=== PATIENT | female | born 1985 | race Caucasian/White ===

== ENCOUNTER → 2016-08-05 | Outpatient (CLI) | payer BC ==
--- NOTE | 2016-08-05 17:47 | WOMENS IMAGING REPORT ---
EXAM DESCRIPTION: BILAT DIAGNOSTIC MAMMO W/CAD; U/S BREAST UNILAT LIMITED COMPLETED DATE/TIME: 08/05/2016 10:29 am; 08/05/2016 11:19 am REASON FOR STUDY: N63 LUMP; BREAST LUMP; LUMP N63 UNSPECIFIED LUMP IN BREAST COMPARISON: None. TECHNIQUE: Standard craniocaudal and mediolateral oblique views of each breast recorded using digita l acquisition. Bilateral craniocaudad and MLO cone compression images, bilateral 90 mediolateral mammograms. Bilateral breast ultrasound was performed. LIMITATIONS: None. FINDINGS: RIGHT BREAST MASSES: Small 5 mm nodule deep central 12 o'clock position, right breast laterally about the 9 o'cloc k position. These were subsequently demonstrated to represent benign breast parenchymal cysts at [facility] rasound today. CALCIFICATIONS: No new or suspicious calcifications. ARCHITECTURAL DISTORTION: None. DEVELOPING DENSITY: None. ASYMMETRY: None noted. OTHER: No other significant findings. LEFT BREAST MASSES: No suspicious masses. CALCIFICATIONS: No new or suspicious calcifications. ARCHITECTURAL DISTORTION: None. DEVELOPING DENSITY: None. ASYMMETRY: None noted. OTHER: No other significant finding. Read with the assistance of CAD: .[facility] - R2 Cenova Version 1.3 .[facility] - R2 Cenova Version 1.3 .[facility] - R2 Cenova Version 2.4 .[facility] - R2 Cenova Version 2.4 .[facility] - R2 [employer] Officer Version 9.2 Bilateral breast ultrasound: Patient had a questionable palpable abnormality in the left breast upper outer quadrant. Ultrasound of this area demonstrates no discrete cystic or solid lesions. No focal findings. Ultrasound was performed to evaluate mammographic nodules seen today. Benign breast parenchymal cyst s are present, 7 mm diameter at the deep 12 o'clock position, 3 mm diameter at the 12 o'clock positio n, 5 mm diameter at the 9 o'clock position. BREAST DENSITY: b. There are scattered areas of fibroglandular density. BIRAD: 2 Benign findings. RECOMMENDATION: RECOMMENDED FOLLOW UP: Please continue bilateral yearly screening mammography based on the patient's lifetime risk assessment for breast cancer, Karla model SPECIFIC INTERVENTION/IMAGING/CONSULTATION RECOMMENDED:No additional intervention/ imaging/consultati on needed at this time. COMMUNICATION:Patient notified by letter COMMENT: PATIENT NOTIFIED BY LETTER. The [employer] (ACR) has developed recommendations for screening MRI of the breast s in certain patient populations, to be used in conjunction with mammography. Breast MRI surveillanc e may be appropriate for women with more than 20% lifetime risk of developing breast cancer as deter mined by genetic testing, significant family history of the disease, or history of mantle radiation f or Hodgkins Disease. ACR Practice Guidelines 2008. TECHNICAL DOCUMENTATION: FINDING NUMBER: (1) ASSESSMENT: (1) JOB ID: [id number] [employer]- All Rights Reserved
--- NOTE | 2016-08-05 17:47 | WOMENS IMAGING REPORT ---
EXAM DESCRIPTION: BILAT DIAGNOSTIC MAMMO W/CAD; U/S BREAST UNILAT LIMITED COMPLETED DATE/TIME: 08/05/2016 10:29 am; 08/05/2016 11:19 am REASON FOR STUDY: N63 LUMP; BREAST LUMP; LUMP N63 UNSPECIFIED LUMP IN BREAST COMPARISON: None. TECHNIQUE: Standard craniocaudal and mediolateral oblique views of each breast recorded using digita l acquisition. Bilateral craniocaudad and MLO cone compression images, bilateral 90 mediolateral mammograms. Bilateral breast ultrasound was performed. LIMITATIONS: None. FINDINGS: RIGHT BREAST MASSES: Small 5 mm nodule deep central 12 o'clock position, right breast laterally about the 9 o'cloc k position. These were subsequently demonstrated to represent benign breast parenchymal cysts at [facility] rasound today. CALCIFICATIONS: No new or suspicious calcifications. ARCHITECTURAL DISTORTION: None. DEVELOPING DENSITY: None. ASYMMETRY: None noted. OTHER: No other significant findings. LEFT BREAST MASSES: No suspicious masses. CALCIFICATIONS: No new or suspicious calcifications. ARCHITECTURAL DISTORTION: None. DEVELOPING DENSITY: None. ASYMMETRY: None noted. OTHER: No other significant finding. Read with the assistance of CAD: .[facility] - R2 Cenova Version 1.3 .[facility] - R2 Cenova Version 1.3 .[facility] - R2 Cenova Version 2.4 .[facility] - R2 Cenova Version 2.4 .[facility] - R2 Kiln Tender Version 9.2 Bilateral breast ultrasound: Patient had a questionable palpable abnormality in the left breast upper outer quadrant. Ultrasound of this area demonstrates no discrete cystic or solid lesions. No focal findings. Ultrasound was performed to evaluate mammographic nodules seen today. Benign breast parenchymal cyst s are present, 7 mm diameter at the deep 12 o'clock position, 3 mm diameter at the 12 o'clock positio n, 5 mm diameter at the 9 o'clock position. BREAST DENSITY: b. There are scattered areas of fibroglandular density. BIRAD: 2 Benign findings. RECOMMENDATION: RECOMMENDED FOLLOW UP: Please continue bilateral yearly screening mammography based on the patient's lifetime risk assessment for breast cancer, Karla model SPECIFIC INTERVENTION/IMAGING/CONSULTATION RECOMMENDED:No additional intervention/ imaging/consultati on needed at this time. COMMUNICATION:Patient notified by letter COMMENT: PATIENT NOTIFIED BY LETTER. The [employer] (ACR) has developed recommendations for screening MRI of the breast s in certain patient populations, to be used in conjunction with mammography. Breast MRI surveillanc e may be appropriate for women with more than 20% lifetime risk of developing breast cancer as deter mined by genetic testing, significant family history of the disease, or history of mantle radiation f or Hodgkins Disease. ACR Practice Guidelines 2008. TECHNICAL DOCUMENTATION: FINDING NUMBER: (1) ASSESSMENT: (1) JOB ID: [id number] [email or web address]- All Rights Reserved
--- NOTE | 2016-08-05 17:47 | WOMENS IMAGING REPORT ---
EXAM DESCRIPTION: BILAT DIAGNOSTIC MAMMO W/CAD; U/S BREAST UNILAT LIMITED COMPLETED DATE/TIME: 08/05/2016 10:29 am; 08/05/2016 11:19 am REASON FOR STUDY: N63 LUMP; BREAST LUMP; LUMP N63 UNSPECIFIED LUMP IN BREAST COMPARISON: None. TECHNIQUE: Standard craniocaudal and mediolateral oblique views of each breast recorded using digita l acquisition. Bilateral craniocaudad and MLO cone compression images, bilateral 90 mediolateral mammograms. Bilateral breast ultrasound was performed. LIMITATIONS: None. FINDINGS: RIGHT BREAST MASSES: Small 5 mm nodule deep central 12 o'clock position, right breast laterally about the 9 o'cloc k position. These were subsequently demonstrated to represent benign breast parenchymal cysts at [facility] rasound today. CALCIFICATIONS: No new or suspicious calcifications. ARCHITECTURAL DISTORTION: None. DEVELOPING DENSITY: None. ASYMMETRY: None noted. OTHER: No other significant findings. LEFT BREAST MASSES: No suspicious masses. CALCIFICATIONS: No new or suspicious calcifications. ARCHITECTURAL DISTORTION: None. DEVELOPING DENSITY: None. ASYMMETRY: None noted. OTHER: No other significant finding. Read with the assistance of CAD: .[facility] - R2 Cenova Version 1.3 .[facility] - R2 Cenova Version 1.3 .[facility] - R2 Cenova Version 2.4 .[facility] - R2 Cenova Version 2.4 .[facility] - R2 [employer] Version 9.2 Bilateral breast ultrasound: Patient had a questionable palpable abnormality in the left breast upper outer quadrant. Ultrasound of this area demonstrates no discrete cystic or solid lesions. No focal findings. Ultrasound was performed to evaluate mammographic nodules seen today. Benign breast parenchymal cyst s are present, 7 mm diameter at the deep 12 o'clock position, 3 mm diameter at the 12 o'clock positio n, 5 mm diameter at the 9 o'clock position. BREAST DENSITY: b. There are scattered areas of fibroglandular density. BIRAD: 2 Benign findings. RECOMMENDATION: RECOMMENDED FOLLOW UP: Please continue bilateral yearly screening mammography based on the patient's lifetime risk assessment for breast cancer, Karla model SPECIFIC INTERVENTION/IMAGING/CONSULTATION RECOMMENDED:No additional intervention/ imaging/consultati on needed at this time. COMMUNICATION:Patient notified by letter COMMENT: PATIENT NOTIFIED BY LETTER. The [employer] [employer] (ACR) has developed recommendations for screening MRI of the breast s in certain patient populations, to be used in conjunction with mammography. Breast MRI surveillanc e may be appropriate for women with more than 20% lifetime risk of developing breast cancer as deter mined by genetic testing, significant family history of the disease, or history of mantle radiation f or Hodgkins Disease. ACR Practice Guidelines 2008. TECHNICAL DOCUMENTATION: FINDING NUMBER: (1) ASSESSMENT: (1) JOB ID: [id number] [email or web address]- All Rights Reserved
== END ==
LOC: WI 10:07
DX: N63 Unspecified lump in breast (principal)
CPT/HCPCS: 76642; G0204; 77066

== ENCOUNTER 2020-01-16 16:29 | Emergency (ER) | payer BC, OTHER ==
[2020-01-16] MEDS ORDERED: ONDANSETRON HCL INJ/PF 4 MG/2 ML SDV IV ONE (17:36)
[2020-01-16] MEDS ORDERED: NORMAL SALINE 1000 ML 1,000 ML IV ONE ×2 (17:36→21:13)
[2020-01-16] MEDS ORDERED: KETOROLAC TROMETHAMINE INJ/PF 30 MG/1 ML SDV IV ONE (17:36)
--- NOTE | 2020-01-16 17:40 | ER Document Report ---
ED General - General Mode of Arrival: Ambulatory Information source: Patient TRAVEL OUTSIDE OF THE [place] IN LAST 30 DAYS: No - HPI Onset: Other - 5 days Onset/Duration: Worse Quality of pain: Achy Pain Level: 3 Associated symptoms: Nonproductive cough, Fever, Nausea. denies: Productive cough, Diarrhea, Headache, Vomiting, Sore throat Exacerbated by: Denies Relieved by: Denies Similar symptoms previously: No Recently seen / treated by doctor: No <JUAN GOMES - Last Filed: 01/17/20 00:46> <ERIC BOWMAN - Last Filed: 01/17/20 06:21> - General Chief Complaint: right flank Stated Complaint: FLANK PAIN/FEVER/SOB Time Seen by Provider: 01/16/20 16:50 Primary Care Provider: [facility] [Provider Group] - Follow up tomorrow Notes: Patient presents complaining of right side pain for the past 5 days. Patient states she did have some urinary frequency. Patient reports nausea. Patient states she is had a fever for the past 3 days that is been as high as 104. Patient reports dry cough for the past 3 days as well. (JUAN GOMES) - Related Data Allergies/Adverse Reactions: ceftriaxone sodium [From Rocephin IM Convenience] Allergy (Verified 01/16/20 16:45) doxycycline Allergy (Verified 01/16/20 16:45) lidocaine HCl [From Rocephin IM Convenience] Allergy (Verified 01/16/20 16:45) Past Medical History - General Information source: Patient - Social History Smoking Status: Current Every Day Smoker Frequency of alcohol use: None Drug Abuse: None Occupation: Retail Family History: Reviewed & Not Pertinent Patient has homicidal ideation: No Pulmonary Medical History: Reports: Hx Asthma Neurological Medical History: Reports: Hx Migraine Surgical Hx: Negative - Immunizations Hx Diphtheria, Pertussis, Tetanus Vaccination: No - unknown <JUAN GOMES - Last Filed: 01/17/20 00:46> Review of Systems - Review of Systems Constitutional: Fever EENT: No symptoms reported Cardiovascular: No symptoms reported. denies: Chest pain Respiratory: Cough. denies: Short of breath Gastrointestinal: Abdominal pain, Nausea. denies: Diarrhea, Vomiting Genitourinary: Frequency, Flank pain. denies: Dysuria Female Genitourinary: No symptoms reported Musculoskeletal: Back pain Skin: No symptoms reported Hematologic/Lymphatic: No symptoms reported Neurological/Psychological: No symptoms reported <JUAN GOMES - Last Filed: 01/17/20 00:46> Physical Exam - General General appearance: Appears well, Alert In distress: None - HEENT Head: Normocephalic, Atraumatic Eyes: Normal Conjunctiva: Normal Nasal: Normal Mouth/Lips: Normal Mucous membranes: Normal Neck: Normal, Supple. No: Lymphadenopathy - Respiratory Respiratory status: No respiratory distress Chest status: Nontender Breath sounds: Nonproductive cough Chest palpation: Normal - Cardiovascular Rhythm: Regular Heart sounds: S1 appreciated, S2 appreciated Murmur: No - Abdominal Inspection: Normal Distension: No distension Bowel sounds: Normal Tenderness: Tender - Right middle abdominal tenderness. No: Guarding Organomegaly: No organomegaly - Back Back: CVA tenderness - Right. No: Vertebra tenderness - Extremities General upper extremity: Normal inspection, Normal strength General lower extremity: Normal inspection, Normal strength - Neurological Neuro grossly intact: Yes Cognition: Normal [place] Coma Scale Eye Opening: Spontaneous [place] Coma Scale Verbal: Oriented [place] Coma Scale Motor: Obeys Commands [place]h Coma Scale Total: 15 - Psychological Associated symptoms: Normal affect, Normal mood - Skin Skin Temperature: Warm Skin Moisture: Dry Skin Color: Normal <JUAN GOMES - Last Filed: 01/17/20 00:46> - Vital signs Vitals: Temp Pulse BP Pulse Ox 98.8 F 97 129/82 H 98 01/16/20 16:37 01/16/20 16:37 01/16/20 16:37 01/16/20 16:37 Course - Laboratory Result Diagrams: 01/16/20 17:15 01/16/20 17:15 - Diagnostic Test Radiology reviewed: Reports reviewed <ELISEOHUMERASAMIR - Last Filed: 01/17/20 00:46> - Laboratory Result Diagrams: 01/16/20 17:15 01/16/20 17:15 <ERIC BOWMAN - Last Filed: 01/17/20 06:21> - Re-evaluation Re-evalutation: 01/16/20 20:16 Patient with mild leukocytosis although afebrile. Patient does have UTI wo rrisome for pyelonephritis at this time. Patient nontoxic in appearance. No evidence for obstructive uropathy on CT scan. 01/16/20 20:[address] Moore who agrees with plan of care with administering a gram of ertapenem and discharging patient home with a prescription for Bactrim. 01/16/20 21:15 Patient febrile at this time. Will treat fever symptoms and give additional IV fluids and reevaluate. 01/17/20 00:46 Report and handoff given to Eric Bowman, LUZ. Patient updated regarding plan of care at this time. (JUAN GOMES) Repeat lactic was normal, patient feels improved, vital signs stable. Discharged initiated by previous provider printed for nursing staff. (ERIC BOWMAN) - Vital Signs Vital signs: Temp Pulse Resp BP Pulse Ox 99.2 F 103 H 15 114/62 97 01/17/20 04:16 01/16/20 21:20 01/17/20 04:14 01/17/20 04:14 01/17/20 04:14 - Laboratory Laboratory results interpreted by me: 01/16/20 01/16/20 01/16/20 17:15 17:15 17:15 WBC 12.7 H Hgb 15.7 H Absolute Neuts (auto) 9.5 H Sodium 136.9 L Glucose 120 H Lactic Acid Urine Protein 30 H Urine Blood MODERATE H Ur Leukocyte Esterase MODERATE H 01/16/20 01/17/20 22:26 02:05 WBC Hgb Absolute Neuts (auto) Sodium Glucose Lactic Acid 0.6 L 0.6 L Urine Protein Urine Blood Ur Leukocyte Esterase Labs- All tests 24 hr 01/16/20 01/16/20 01/16/20 17:15 17:15 17:15 WBC 12.7 H RBC 4.96 Hgb 15.7 H Hct 46.2 MCV 93 MCH 31.7 MCHC 34.0 RDW 13.1 Plt Count 203 Lymph % (Auto) 15.4 [place] % (Auto) 8.6 Eos % (Auto) 0.5 Baso % (Auto) 0.3 Absolute Neuts (auto) 9.5 H Absolute Lymphs (auto) 2.0 Absolute Monos (auto) 1.1 Absolute Eos (auto) 0.1 Absolute Basos (auto) 0.0 Seg Neutrophils % 75.2 Sodium 136.9 L Potassium 3.9 Chloride 101 Carbon Dioxide 29 Anion Gap 7 BUN 14 Creatinine 0.92 Est GFR ( Amer) > 60 Est GFR (MDRD) Non-Af > 60 Glucose 120 H Calcium 9.0 Total Bilirubin 0.5 Direct Bilirubin 0.1 Neonat Total Bilirubin Not Reportable Neonat Direct Bilirubin Not Reportable Neonat Indirect Bili Not Reportable AST 23 ALT 22 Alkaline Phosphatase 44 Total Protein 7.2 Albumin 4.2 Lipase 43.9 Serum HCG, Qual NEGATIVE Urine Color Urine Appearance Urine pH Ur Specific [place] Urine Protein Urine Glucose (UA) Urine Ketones Urine Blood Urine Nitrite Urine Bilirubin Urine Urobilinogen Ur Leukocyte Esterase Urine WBC (Auto) Urine RBC (Auto) Urine Bacteria (Auto) Squamous Epi Cells Auto Urine Mucus (Auto) Urine Ascorbic Acid 01/16/20 17:15 WBC RBC Hgb Hct MCV MCH MCHC RDW Plt Count Lymph % (Auto) Davie % (Auto) Eos % (Auto) Baso % (Auto) Absolute Neuts (auto) Absolute Lymphs (auto) Absolute Monos (auto) Absolute Eos (auto) Absolute Basos (auto) Seg Neutrophils % Sodium Potassium Chloride Carbon Dioxide Anion Gap BUN Creatinine Est GFR ( Amer) Est GFR (MDRD) Non-Af Glucose Calcium Total Bilirubin Direct Bilirubin Neonat Total Bilirubin Neonat Direct Bilirubin Neonat Indirect Bili AST ALT Alkaline Phosphatase Total Protein Albumin Lipase Serum HCG, Qual Urine Color YELLOW Urine Appearance SLIGHTLY-CLOUDY Urine pH 6.0 Ur Specific [place] 1.017 Urine Protein 30 H Urine Glucose (UA) NEGATIVE Urine Ketones NEGATIVE Urine Blood MODERATE H Urine Nitrite NEGATIVE Urine Bilirubin NEGATIVE Urine Urobilinogen NEGATIVE Ur Leukocyte Esterase MODERATE H Urine WBC (Auto) 170 Urine RBC (Auto) 14 Urine Bacteria (Auto) 3+ Squamous Epi Cells Auto 1 Urine Mucus (Auto) OCC Urine Ascorbic Acid NEGATIVE (JUAN GOMES) Discharge <JUAN GOMES - Last Filed: 01/17/20 00:46> <ERIC BOWMAN - Last Filed: 01/17/20 06:21> - Discharge Clinical Impression: Pyelonephritis, Flank pain, Encounter for screening laboratory testing for COVID-19 virus Condition: Stable Disposition: HOME, SELF-CARE Instructions: COVID-19 Guidance for Persons Under Investigation, IV Antibiotics ([facility]), Pyelonephritis ([facility]), Trimethoprim-Sulfa ([facility]) Additional Instructions: Return immediately for any new or worsening symptoms Followup with your primary care provider, call tomorrow to make a followup appointment Urine culture is pending, we will call if you need any different treatment Prescriptions: Sulfamethoxazole/Trimethoprim [Bactrim Ds Tablet] 1 each PO BID #20 tablet Hydrocodone/Acetaminophen [[place] 5-325 mg Tablet] 1 tab PO Q6 PRN #6 tablet PRN Reason: Ondansetron [Zofran Odt 4 mg Tablet] 1 tab PO Q6H #15 tab.rapdis Forms: Return to Work Referrals: [facility] [Provider Group] - Follow up tomorrow
[2020-01-16 18:04] LABS: ABSOLUTE EOSINOPHILS # (AUTO) 0.1 10^3/uL (0.0-0.6); ABSOLUTE MONOCYTES (AUTO) 1.1 10^3/uL (0.1-1.4); ABSOLUTE NEUT (AUTO) 9.5 10^3/uL (1.7-8.2); BASOPHILS % (AUTO) 0.3 % (0-2); EOSINOPHILS % (AUTO) 0.5 % (0-6); HEMATOCRIT 46.2 % (36.0-47.0); HEMOGLOBIN 15.7 g/dL (12.0-15.5); LYMPHOCYTES % (AUTO) 15.4 % (13-45); MEAN CORPUSCULAR HEMOGLOBIN 31.7 pg (27.0-33.4); MEAN CORPUSCULAR VOLUME 93 fl (80-97); MONOCYTES % (AUTO) 8.6 % (3-13); PLATELET COUNT 203 10^3/uL (150-450); RED BLOOD COUNT 4.96 10^6/uL (3.72-5.28); RED CELL DISTRIBUTION WIDTH 13.1 % (11.5-14.0); SEGMENTED NEUTROPHILS % (AUTO) 75.2 % (42-78); TOTAL CELLS COUNTED % (AUTO) 100 %; WHITE BLOOD COUNT 12.7 10^3/uL (4.0-10.5)
[2020-01-16 18:15] LABS: ALBUMIN 4.2 g/dL (3.5-5.0); ALKALINE PHOSPHATASE 44 U/L (38-126); ANION GAP 7 (5-19); ASPARTATE AMINO TRANSFERASE 23 U/L (14-36); BILIRUBIN,DIRECT 0.1 mg/dL (0.0-0.4); BILIRUBIN,TOTAL 0.5 mg/dL (0.2-1.3); BLOOD UREA NITROGEN 14 mg/dL (7-20); CARBON DIOXIDE 29 mmol/L (22-30); CHLORIDE 101 mmol/L (98-107); GLUCOSE 120 mg/dL (75-110); POTASSIUM 3.9 mmol/L (3.6-5.0); TOTAL PROTEIN 7.2 g/dL (6.3-8.2)
--- NOTE | 2020-01-16 18:15 | RADIOLOGY REPORT (SQ) ---
EXAM DESCRIPTION: CHEST SINGLE VIEW IMAGES COMPLETED DATE/TIME: 01/16/2020 5:55 pm REASON FOR STUDY: cough COMPARISON: 07/28/2010 EXAM PARAMETERS: NUMBER OF VIEWS: One view. TECHNIQUE: Single frontal radiographic view of the chest acquired. RADIATION DOSE: NA LIMITATIONS: None. FINDINGS: LUNGS AND PLEURA: No opacities, masses or pneumothorax. No pleural effusion. MEDIASTINUM AND HILAR STRUCTURES: No masses. Contour normal. HEART AND VASCULAR STRUCTURES: Heart normal in size. Normal vasculature. BONES: No acute findings. HARDWARE: None in the chest. OTHER: No other significant finding. IMPRESSION: 1. No significant interval changes since the prior study dated 07/28/2010. No acute fin dings. TECHNICAL DOCUMENTATION: JOB ID: [id number] 2010 [employer]- All Rights Reserved Reading location - IP/workstation name: [email or web address]
[2020-01-16 18:23] LABS: APPEARANCE,URINE SLIGHTLY-CLOUDY; BILIRUBIN,URINE NEGATIVE (NEGATIVE); COLOR,URINE YELLOW; GLUCOSE, URINE NEGATIVE (NEGATIVE); KETONES,URINE NEGATIVE (NEGATIVE); LEUKOCYTE ESTERASE,URINE MODERATE (NEGATIVE); NITRITE,URINE NEGATIVE (NEGATIVE); PROTEIN,URINE 30 mg/dL (NEGATIVE); URINE SPECIFIC GRAVITY 1.017; UROBILINOGEN,URINE NEGATIVE mg/dL (<2.0)
[2020-01-16] MEDS ORDERED: MORPHINE SULFATE 10 MG/ML INJ IV ONE (18:29)
[2020-01-16] MEDS ORDERED: SULFAMETHOXAZOLE/TRIMETHOPRIM 800-160 MG TABLET PO ONE (18:30)
--- NOTE | 2020-01-16 19:35 | RADIOLOGY REPORT (SQ) ---
EXAM DESCRIPTION: CT ABD/PELVIS NO ORAL OR IV IMAGES COMPLETED DATE/TIME: 01/16/2020 7:21 pm REASON FOR STUDY: r flank pain, uti COMPARISON: None. TECHNIQUE: CT scan of the abdomen and pelvis performed without intravenous or oral contrast. Images reviewed with lung, soft tissue, and bone windows. Reconstructed coronal and sagittal MPR images revi ewed. All images stored on PACS. All CT scanners at this facility use dose modulation, iterative reconstruction, and/or weight based d osing when appropriate to reduce radiation dose to as low as reasonably achievable (ALARA). [facility]: Dose Right [facility]: CareDose [facility]: Dose Right [facility]: Teradose 4D [facility]: Smart Feedjit RADIATION DOSE: CT Rad equipment meets quality standard of care and radiation dose reduction techniq ues were employed. CTDIvol: 11.8 mGy. DLP: 676 mGy-cm.mGy. LIMITATIONS: None. FINDINGS: LOWER CHEST: No significant findings. No nodules or infiltrates. NON-CONTRASTED LIVER, SPLEEN, ADRENALS: Evaluation limited by lack of IV contrast. No identified sign ificant masses. PANCREAS: No masses. No peripancreatic inflammatory changes. GALLBLADDER: No identified stones by CT criteria. No inflammatory changes to suggest cholecystitis. RIGHT KIDNEY AND URETER: No suspicious masses. Assessment limited by lack of IV contrast. No signif icant calcifications. No hydronephrosis or hydroureter. LEFT KIDNEY AND URETER: No suspicious masses. Assessment limited by lack of IV contrast. No signifi cant calcifications. No hydronephrosis or hydroureter. AORTA AND RETROPERITONEUM: No aneurysm. No retroperitoneal masses or adenopathy. BOWEL AND PERITONEAL CAVITY: No obvious masses or inflammatory changes. No free fluid. APPENDIX: Not identified. PELVIS, BLADDER, AND ABDOMINAL WALL:No abnormal masses. No free fluid. Bladder normal. BONES: No significant findings. OTHER: No other significant finding. IMPRESSION: No urinary calculi are seen. The appendix is not identified, but no pericecal inflammat ion is seen. COMMENT: Quality ID # [id number]: Final reports with documentation of one or more dose reduction techniques (e.g., Automated exposure control, adjustment of the mA and/or kV according to patient size, use of iterative reconstruction technique) TECHNICAL DOCUMENTATION: JOB ID: [id number] 2010 [employer]- All Rights Reserved Reading location - IP/workstation name: [email or web address]
[2020-01-16] MEDS ORDERED: ERTAPENEM SODIUM INJ 1 GM VIAL IV ONE (20:25)
[2020-01-16] MEDS ORDERED: ACETAMINOPHEN 325 MG TABLET PO ONE (21:12)
[2020-01-16] MEDS ORDERED: RINGERS SOLUTION,LACTATED 1,000 ML IV ONE (22:14)
[2020-01-16 22:40] LABS: INTERNATIONAL RATION (INR) 1.07; PROTHROMBIN TIME 13.9 SEC (11.4-15.4)
[2020-01-16 23:13] LABS: VENOUS BLOOD BASE EXCESS -2.6 mmol/L; VENOUS BLOOD HCO3 21.8 mmol/L (20-32); VENOUS BLOOD PCO2 36.7 mmHg (35-63); VENOUS BLOOD PH 7.39 (7.30-7.42)
[2020-01-16] MEDS ORDERED: IBUPROFEN 800 MG TABLET PO ONE (23:40)
[2020-01-17 04:31] VITALS: BP 114/62
--- NOTE | 2020-01-17 13:18 | EKG REPORT ---
SEVERITY:- BORDERLINE ECG - SINUS RHYTHM PROBABLE LEFT ATRIAL ABNORMALITY BORDERLINE RIGHT AXIS DEVIATION : Confirmed by: Max Foster MD 17-Jan-2020 13:17:03
== END 2020-01-17 05:15 | disposition home or self-care (01) ==
LOC: ER 16:29
DX: N12 Tubulo-interstitial nephritis, not specified as acute or chronic (principal); Z20.828 Contact with and (suspected) exposure to other viral communicable diseases; R05 Cough; R11.0 Nausea; R50.9 Fever, unspecified; R35.0 Frequency of micturition; F17.200 Nicotine dependence, unspecified, uncomplicated
CPT/HCPCS: 93005; 99285; 96361; 96375; 96365; 36415; 87040; 87086; 83605; 83690; 84703; 85025; 85610; 87635; 87088; 80053; 81001; 82803; 71045; 74176; 93010; J1335; J1885; J2270; J2405; J7030; J7120; C9803; 87186